=== PATIENT | female | born 1945 | race Caucasian/White ===

== ENCOUNTER 2018-04-05 19:46 | Inpatient (IN) | payer OTHER ==
[~2018-04-05] VITALS: Ht 149.9 cm; Wt 75.3 kg
[~2018-04-05 19:46] MED LIST: Antivert PO; CALCIUM + VITA1 EACH PO; CALCIUM 600 +1 EAC1 PO; CALCIUM 600 +1 EACH PO; CELEBREX200 MG PO; CENTRUM SILVER1 EAC3 PO; DILANTIN100 MG PO; Ecotrin PO; GENTEAL MILD25 ML LEFT EYE; GNP FISH OIL 11 EAC1 PO; LO-DOSE ASPIRIN81 M1 PO; Levothroid,Synthroid PO; SYNTHROID137 MCG PO; VITAMIN D2000 UNIT PO; celeBREX PO
[2018-04-05 20:21] LABS: HEMATOCRIT 40.3 % (36.0-46.0); HEMOGLOBIN 13.7 G/DL (11.9-15.5); MCH 33.3 PG (29.0-34.0); MCV 97.8 FL (83-99); PLATELET COUNT 296 K/uL (156-360); RBC DIS.WIDTH-SD 43.6 % (39-53); RED BLOOD COUNT 4.12 M/uL (3.80-5.20); WHITE BLOOD COUNT 13.5 K/uL (4.1-10.2)
[2018-04-05 20:29] LABS: ALBUMIN 4.3 g/dL (3.2-4.8)
[2018-04-05 20:30] LABS: CHLORIDE 109 mEq/L (99-109); POTASSIUM 4.9 mEq/L (3.7-5.4); SODIUM 145 mEq/L (136-147)
[2018-04-05 20:32] LABS: GLUCOSE 151 mg/dL (70-99); TOTAL PROTEIN 7.1 g/dL (6.4-8.3)
[2018-04-05 20:34] LABS: TOTAL BILIRUBIN 0.3 mg/dL (0.0-1.0)
[2018-04-05 20:35] LABS: ALKALINE PHOSPHATASE 114 IU/L (3-129)
[2018-04-05 20:36] LABS: CREATININE 0.9 mg/dL (0.6-1.3); GFR ESTIMATE (CALCULATED) > 59 mL/min/
[2018-04-05 20:37] LABS: AST (GOT) 21 IU/L (2-34); UREA NITROGEN (BUN) 22 mg/dL (9-23)
[2018-04-05 20:38] LABS: ALT (GPT) 18 IU/L (3-49)
[2018-04-05 21:30] LABS: LIPASE 26 U/L (1.0-51.0)
[2018-04-05] MEDS ORDERED: DILANTIN30 MG PO (23:03)
[2018-04-05] MEDS ORDERED: DILANTIN INFATA50 MG PO (23:04)
[2018-04-05] MEDS ORDERED: AID PO (23:05)
[2018-04-05] MEDS ORDERED: TURMERIC 500 M1 EACH PO (23:06)
[2018-04-05] MEDS ORDERED: MAGNESIUM250 MG PO (23:06)
[2018-04-06 01:00] VITALS: BP 179/74
[2018-04-06 01:48] LABS: APPEARANCE CLEAR ((CLEAR)); BILIRUBIN NEGATIVE; BLOOD SMALL; COLOR YELLOW ((YELLOW)); GLUCOSE (STRIP) NEGATIVE; KETONES NEGATIVE; LEUKOCYTES NEGATIVE; NITRITE NEGATIVE; PROTEIN (STRIP) 30; SPECIFIC GRAVITY 1.041 (1.000-1.030); UROBILINOGEN 0.2 MG/DL (0.2-1.0)
[2018-04-06 02:15] LABS: BACTERIA NONE SEEN /HPF; EPITHELIAL CELLS NONE SEEN /HPF; MUCUS NONE SEEN /LPF; RED BLOOD CELLS 0-5 /HPF (0-5); UCUL ADDED? NO; WHITE BLOOD CELLS 0-5 /HPF (0-5)
[2018-04-06 07:15] VITALS: BP 128/60
[2018-04-06 08:32] LABS: BASOPHIL (%) 0.1 % (0-1); EOSINOPHIL (%) 0.2 % (0-5); HEMATOCRIT 36.2 % (36.0-46.0); HEMOGLOBIN 12.4 G/DL (11.9-15.5); IMMATURE GRANULOCYTE (%) 0.3 % (0.0-0.7); LYMPHOCYTE (%) 9.3 % (15-42); LYMPHOCYTE COUNT 1.1 K/uL (1.0-2.8); MCH 33.4 PG (29.0-34.0); MCHC 34.3 G/DL (30.0-36.0); MCV 97.6 FL (83-99); MONOCYTE (%) 10.9 % (3-12); MONOCYTE COUNT 1.3 K/uL (0-0.8); NEUTROPHIL (%) 79.2 % (45-76); NEUTROPHIL COUNT 9.2 K/uL (1.8-6.4); PLATELET COUNT 253 K/uL (156-360); RBC DIS.WIDTH-CV 12.2 % (11.8-14.6); RED BLOOD COUNT 3.71 M/uL (3.80-5.20); WHITE BLOOD COUNT 11.6 K/uL (4.1-10.2)
[2018-04-06 08:52] LABS: CHLORIDE 110 MEQ/L (99-109); CREATININE 0.7 MG/DL (0.6-1.3); GFR ESTIMATE (CALCULATED) > 59 mL/min/; GLUCOSE 136 mg/dL (70-99); POTASSIUM 4.1 MEQ/L (3.7-5.4); SODIUM 144 MEQ/L (136-147); UREA NITROGEN (BUN) 20 mg/dL (9-23)
[2018-04-06 11:10] VITALS: BP 135/62
[2018-04-06 14:50] VITALS: BP 119/55
[2018-04-06 19:20] VITALS: BP 144/70
[2018-04-06 23:40] VITALS: BP 145/65
[2018-04-07 03:05] VITALS: BP 134/68
[2018-04-07 06:22] LABS: BASOPHIL (%) 0.2 % (0-1); EOSINOPHIL (%) 0.8 % (0-5); EOSINOPHIL COUNT 0.1 K/uL (0-0.3); HEMATOCRIT 33.7 % (36.0-46.0); HEMOGLOBIN 11.3 G/DL (11.9-15.5); IMMATURE GRANULOCYTE (%) 0.2 % (0.0-0.7); LYMPHOCYTE (%) 21.5 % (15-42); LYMPHOCYTE COUNT 2.2 K/uL (1.0-2.8); MCH 33.3 PG (29.0-34.0); MCHC 33.5 G/DL (30.0-36.0); MCV 99.4 FL (83-99); MONOCYTE (%) 11.9 % (3-12); MONOCYTE COUNT 1.2 K/uL (0-0.8); NEUTROPHIL (%) 65.4 % (45-76); NEUTROPHIL COUNT 6.6 K/uL (1.8-6.4); PLATELET COUNT 216 K/uL (156-360); RED BLOOD COUNT 3.39 M/uL (3.80-5.20); WHITE BLOOD COUNT 10.1 K/uL (4.1-10.2)
[2018-04-07 07:00] VITALS: BP 120/58
[2018-04-07 07:05] LABS: CHLORIDE 111 MEQ/L (99-109); CREATININE 0.7 MG/DL (0.6-1.3); GFR ESTIMATE (CALCULATED) > 59 mL/min/; POTASSIUM 4.1 MEQ/L (3.7-5.4); SODIUM 143 MEQ/L (136-147); UREA NITROGEN (BUN) 19 mg/dL (9-23)
[2018-04-07 07:07] LABS: GLUCOSE 74 mg/dL (70-99)
[2018-04-07 15:48] VITALS: BP 97/54
[2018-04-07 23:10] VITALS: BP 141/65
[2018-04-08 06:15] LABS: BASOPHIL (%) 0.2 % (0-1); EOSINOPHIL (%) 2.2 % (0-5); EOSINOPHIL COUNT 0.1 K/uL (0-0.3); HEMATOCRIT 34.3 % (36.0-46.0); HEMOGLOBIN 11.3 G/DL (11.9-15.5); IMMATURE GRANULOCYTE (%) 0.2 % (0.0-0.7); LYMPHOCYTE (%) 35.4 % (15-42); LYMPHOCYTE COUNT 2.1 K/uL (1.0-2.8); MCH 32.4 PG (29.0-34.0); MCHC 32.9 G/DL (30.0-36.0); MCV 98.3 FL (83-99); MONOCYTE (%) 13.1 % (3-12); MONOCYTE COUNT 0.8 K/uL (0-0.8); NEUTROPHIL (%) 48.9 % (45-76); PLATELET COUNT 229 K/uL (156-360); RBC DIS.WIDTH-CV 11.9 % (11.8-14.6); RBC DIS.WIDTH-SD 42.7 % (39-53); RED BLOOD COUNT 3.49 M/uL (3.80-5.20)
[2018-04-08 06:35] LABS: CHLORIDE 109 MEQ/L (99-109); CREATININE 0.7 MG/DL (0.6-1.3); GFR ESTIMATE (CALCULATED) > 59 mL/min/; GLUCOSE 86 mg/dL (70-99); POTASSIUM 3.8 MEQ/L (3.7-5.4); SODIUM 144 MEQ/L (136-147); UREA NITROGEN (BUN) 12 mg/dL (9-23)
[2018-04-08 07:37] VITALS: BP 128/61
[2018-04-08 15:40] VITALS: BP 136/69
[2018-04-08 23:30] VITALS: BP 122/64
[2018-04-09 05:57] LABS: BASOPHIL (%) 0.2 % (0-1); EOSINOPHIL (%) 2.4 % (0-5); EOSINOPHIL COUNT 0.1 K/uL (0-0.3); HEMATOCRIT 32.3 % (36.0-46.0); HEMOGLOBIN 10.8 G/DL (11.9-15.5); IMMATURE GRANULOCYTE (%) 0.2 % (0.0-0.7); LYMPHOCYTE COUNT 1.7 K/uL (1.0-2.8); MCH 32.4 PG (29.0-34.0); MCHC 33.4 G/DL (30.0-36.0); MONOCYTE (%) 15.2 % (3-12); MONOCYTE COUNT 0.8 K/uL (0-0.8); NEUTROPHIL COUNT 2.4 K/uL (1.8-6.4); PLATELET COUNT 227 K/uL (156-360); RBC DIS.WIDTH-CV 11.7 % (11.8-14.6); RBC DIS.WIDTH-SD 41.3 % (39-53); RED BLOOD COUNT 3.33 M/uL (3.80-5.20)
[2018-04-09 06:23] LABS: CHLORIDE 108 MEQ/L (99-109); CREATININE 0.6 MG/DL (0.6-1.3); GFR ESTIMATE (CALCULATED) > 59 mL/min/; GLUCOSE 94 mg/dL (70-99); POTASSIUM 3.5 MEQ/L (3.7-5.4); SODIUM 145 MEQ/L (136-147); UREA NITROGEN (BUN) 8 mg/dL (9-23)
[2018-04-09 07:24] VITALS: BP 129/59
[2018-04-09 15:46] VITALS: BP 147/76
[2018-04-09 23:25] VITALS: BP 178/71
[2018-04-10 08:56] VITALS: BP 148/65
[2018-04-10 16:23] VITALS: BP 144/67
[2018-04-11 00:08] VITALS: BP 131/61
[2018-04-11 08:02] VITALS: BP 137/65
== END 2018-04-11 14:46 | disposition home or self-care (01) | DRG 390 ==
LOC: EME 19:46 → EDOF 23:33 → ENRESERV 23:35 → 2EAST 04-06 00:52
PROVIDERS: Physician Assistant; Surgery
PROC: 0D9670Z Drainage of Stomach with Drainage Device, Via Natural or Artificial Opening (ICD-10-PCS; principal; 2018-04-07)
PROC: BD12YZZ Fluoroscopy of Stomach using Other Contrast (ICD-10-PCS; principal; 2018-04-07)
DX: K56.50 Intestinal adhesions [bands], unspecified as to partial versus complete obstruction (principal); Z85.068 Personal history of other malignant neoplasm of small intestine; Z90.49 Acquired absence of other specified parts of digestive tract; K44.9 Diaphragmatic hernia without obstruction or gangrene; N28.1 Cyst of kidney, acquired; D72.829 Elevated white blood cell count, unspecified; Z68.33 Body mass index [BMI] 33.0-33.9, adult; Z79.82 Long term (current) use of aspirin
CPT/HCPCS: 74018; 74019; 74177; 76000; 80048; 80053; 80185; 81003; 82948; 83690; 85025; 85027; 99281; 99285; J1165; J1170; J1650; J2405; J3010; J7030; J7120